=== PATIENT | male | born 1995 | race African-American/Black ===

== ENCOUNTER 2019-05-22 00:31 | Emergency (ER) | payer SELFPAY, OTHER ==
[2019-05-22] MEDS: ONDANSETRON (ODT) 4 MG TAB ODT (01:28)
[2019-05-22] MEDS: HYDROCODONE/APAP (10/325) TAB PO (01:29)
== END 2019-05-22 04:08 | disposition home or self-care (01) ==
LOC: FTE 00:31
DX: S06.0X0A Concussion without loss of consciousness, initial encounter (principal); S16.1XXA Strain of muscle, fascia and tendon at neck level, initial encounter; S20.219A Contusion of unspecified front wall of thorax, initial encounter; V43.52XA Car driver injured in collision with other type car in traffic accident, initial encounter
CPT/HCPCS: 70450; 71046; 72125; 99284-25